=== PATIENT | female | born 1985 | race Asian ===

== ENCOUNTER 2020-03-07 10:30 | Outpatient (CLI) | payer OTHER | END 2020-03-07 19:17 | disposition home or self-care (01) | LOC: US 10:30 | DX: K42.9 Umbilical hernia without obstruction or gangrene (principal) ==

== ENCOUNTER 2022-11-27 11:12 | Outpatient (CLI) | payer OTHER | END 2022-11-27 20:01 | LOC: CT 11:12 | PROVIDERS: ATTEND Internal Medicine | DX: R10.31 Right lower quadrant pain (principal) | CPT/HCPCS: Q9963 ==